=== PATIENT | male | born 1985 | race Caucasian/White ===

== ENCOUNTER → 2017-10-18 | Outpatient (CLI) | payer BC ==
[~2017-10-18] MED LIST: ALBU8.5H7 IH
== END | disposition home or self-care (01) ==
LOC: SLAB 19:45
PROVIDERS: ATTEND Internal Medicine
DX: G47.33 Obstructive sleep apnea (adult) (pediatric) (principal)
CPT/HCPCS: 95810

== ENCOUNTER → 2018-03-28 | Outpatient (CLI) | payer BC ==
--- NOTE | 2018-03-28 11:39 | PCM.EKG ---
[facility] Test Date: 2018-03-28 Test Time: 11:35:59 Pat Name: VICKY HOSKINS Department: Room: Gender: M Stock Receiver: SUMIT : 1985 Requested By: TOÑITO SAWANT Order Number: [id number] Reading MD: Lillian Gonzalez Measurements Intervals [place] Rate: 62 P: 29 MO: 154 QRS: 56 QRSD: 118 T: 22 QT: 422 QTc: 428 Interpretive Statements Sinus rhythm with premature atrial complexes Otherwise normal ECG No previous ECG available for comparison Electronically Signed On 03-31-2018 2:18:59 CDT by Lillian Gonzalez Please click the below link to view image of tracing.
== END | disposition home or self-care (01) ==
LOC: PT 10:40 → RT 11:18
PROVIDERS: ATTEND Internal Medicine
DX: R07.9 Chest pain, unspecified (principal); J45.909 Unspecified asthma, uncomplicated
CPT/HCPCS: 93005

== ENCOUNTER → 2018-04-10 | Outpatient (CLI) | payer BC ==
--- NOTE | 2018-04-10 10:53 | DIREP ---
PROCEDURE:US ABDOMEN LIMITED COMPARISON:None. INDICATIONS:R10.13 EPIGASTRIC PAIN FINDINGS: CBD:0.5 cm GALLBLADDER WALL: 0.2 cm RIGHT KIDNEY: 11.0 x 5.2 x 5.8 cm PANCREAS:The pancreas is largely obscured by bowel gas shadowing. LIVER:Normal hepatic parenchymal architecture. GALLBLADDER:Nondistended gallbladder. There is a shadowing non mobile gallstone measuring 1.8 cm in the neck of the gallbladder without gallbladder wall thickening. Positive sonographic Wilson's sign per technologist. BILIARY:There is no biliary ductal dilatation. RIGHT KIDNEY:Normal. No hydronephrosis. OTHER:Negative. No ascites is identified. CONCLUSION: 1. Cholelithiasis in a nondistended gallbladder. No pericholecystic fluid or gallbladder wall thickening. Sonographic Wilson's sign suggest tenderness in this area although aside from cholelithiasis the gallbladder is unremarkable in appearance. Dictated by: DORITA Physician on 04/10/2018 at 10:27 AM
== END | disposition home or self-care (01) ==
LOC: RAD 08:52
PROVIDERS: ATTEND Internal Medicine
DX: K80.20 Calculus of gallbladder without cholecystitis without obstruction (principal); J45.909 Unspecified asthma, uncomplicated
CPT/HCPCS: 76700